=== PATIENT | male | born 2000 | race Caucasian/White ===

== ENCOUNTER 2024-01-21 22:34 | Emergency (ER) | payer OTHER, BC, SELFPAY ==
--- NOTE | ~2024-01-21 | CT_ITS ---
Noncontrast CT scan of the cervical spine Technique: Multiple contiguous axial [address] images of the cervical spine were obtained and rec onstructed in 2D sagittal and coronal planes on the acquisition scanner. Dose reduction technique was used on this scan by utilizing automated exposure control, adjustment of the mA and/or kV according to patient size. The dose-length product (DLP) was 526.27 mGy-cm. Clinical History: Pain Findings: No fractures or dislocations. Unremarkable visualized bony structures. The intervertebral disc spaces are preserved. No prevertebral soft tissue swelling. Impression: No fracture or subluxation of the cervical spine. Reviewed, dictated and finalized at location . Impression: No fracture or subluxation of the cervical spine.
--- NOTE | ~2024-01-21 | XR_ITS ---
AP view of the pelvis and AP and lateral views of the left hip Clinical history: Pain Findings: No acute fracture or dislocation is seen. Osseous alignment is anatomic. Bilateral hip and SI joint spaces are preserved. Soft tissues are unremarkable. Impression: No significant abnormality is seen. Reviewed, dictated and finalized at [facility]. Impression: No significant abnormality is seen.
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
[2024-01-21 22:34] VITALS: BP 122/64; PULSE 77; RESP 18; TEMP 36.7; O2SAT 97
[2024-01-22 00:15] VITALS: BP 132/78; PULSE 72; RESP 16; TEMP 36.4; O2SAT 98
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
[2024-01-22] MEDS: ACETAMINOPHEN 500 MG TABLET 1000 MG PO (00:50)
[2024-01-22 01:48] VITALS: BP 126/93; PULSE 60; RESP 16; O2SAT 97
== END 2024-01-22 02:56 | disposition home or self-care (01) ==
PROVIDERS: Emergency Provider Physician Assistant
DX: S09.90XA Unspecified injury of head, initial encounter (principal); S16.1XXA Strain of muscle, fascia and tendon at neck level, initial encounter; V49.40XA Driver injured in collision with unspecified motor vehicles in traffic accident, initial encounter
CPT/HCPCS: 70450; 72125; 72131; 73502; 99284; A9270

== ENCOUNTER 2024-10-29 14:18 | Emergency (ER) | payer BC, SELFPAY ==
[2024-10-29 14:26] VITALS: BP 134/83; PULSE 83; RESP 16; TEMP 36.2; O2SAT 98
--- NOTE | 2024-10-29 14:55 | ED_ITS ---
HPI - URI/Sore Throat General Chief Complaint: Upper Respiratory Infection Stated Complaint: Ears/Sinus Irritation Time Seen by Provider: 10/29/24 15:01 Source: patient, RN notes reviewed and old records reviewed Mode of arrival: ambulatory Limitations: no limitations History of Present Illness HPI Narrative: 23-year-old male presents to the [facility] with a 4-5 day history of left ear pain, sinus congestion. No treatment prior to arrival Related Data Allergies Allergy/AdvReac Type Severity Reaction Status Date / Time No Known Allergies Allergy Mild Verified 10/29/24 14:33 Review of Systems Review of Systems: All systems reviewed & are unremarkable except as noted in HPI and below Constitutional: Constitutional: Reports no additional constitutional complaints ENT: Reports as per HPI, Reports otalgia, Reports sinus pain and Reports sinus pressure Cardiovascular: Cardiovascular: Reports no additional cardiovascular complain ts, Denies chest pain and Denies dyspnea Respiratory: Respiratory: Reports no additional respiratory complaints, Denies chest congestion, Denies cough and Denies dyspnea Musculoskeletal: Musculoskeletal: Reports no additional musculoskeletal complaints Integumentary/Breasts: Skin/Breast: Reports system reviewed and no additional complaints, except as docu PMFSH Past Medical History Medical History No active medical problems Social History Social History Substance use: never Comments At the time of my signature, I reviewed and agree with the nursing past medical, surgical, social, and family history. There is no relevant family history pertinent to the patient complaint. Exam Const: General: cooperative, healthy appearing, comfortable, no acute distress, well developed, alert and well nourished Nutritional Appearance: well nourished Orientation/consciousness: patient oriented x3 Limitations: no limitations HENMT: Head: normal to inspection Ears: TM normal on the right, EAC's normal, mastoids normal, no periauricular adenopathy and TM abnormal bulging on the left and erythematous on the left Mouth: Yes Normal oral and palatal mucosa present, Yes lip normal, Yes tongue normal and Yes moist mucous membranes Throat: posterior oropharynx normal, uvula midline, postnasal drainage and no uvular edema Eyes: General: appearance normal, both eyes and all related structures Alignment and Position: alignment normal Neck: Neck: normal visual inspection, full ROM, no lymphadenopathy and no meningeal signs Chest: Chest palpation & inspection: normal inspection of the chest Resp: Effort & Inspection: normal respiratory effort and able to speak in complete sentences Auscultation: clear to auscultation bilaterally, no crackles, no rales, no rhonchi and no wheezes Cardio: Rate: regular rate Skin: General skin exam: normal color and no rashes or lesions noted Neuro: General: patient oriented x3, gait normal, moves all extremities and no meningeal signs Cognition (Neuro): normal cognition Speech: normal speech Gait exam (Neuro): Normal gait present Extrem: General: normal to inspection, full ROM, capillary refill normal and normal gait Psych: Appearance: grossly normal and well kempt Mental Status: mental status grossly normal Speech and movement: Normal speech and movement present and Clear speech present Affect: normal affect Attitude: cooperative Course Course Level of Care: Express Care Visit Vital Signs Vital signs: Vital Signs Temperature 97.1 F L 10/29/24 14:26 Pulse Rate 83 10/29/24 14:26 Respiratory Rate 16 10/29/24 14:26 Blood Pressure 134/83 10/29/24 14:26 Pulse Oximetry 98 10/29/24 14:26 Oxygen Delivery Room Air 10/29/24 14:26 Temperature 97.1 F L 10/29/24 14:26 Pulse Rate 83 10/29/24 14:26 Respiratory Rate 16 10/29/24 14:26 Blood Pressure 134/83 10/29/24 14:26 Pulse Oximetry 98 10/29/24 14:26 Oxygen Delivery Room Air 10/29/24 14:26 Reviewed MDM - URI/Sore Throat MDM Narrative Medical decision making narrative: Patient sitting comfortably in exam room. Nontoxic, vitals stable. Patient presents with 4-5 day history of URI symptoms. Left TM erythema, bulging. Exam consistent with left otitis media. Patient appropriate for outpatient treatment and follow-up Discharge instructions reviewed with patient, as well as provided in writing per nursing staff. The instructions also include specific and strict return/GO TO THE ER as well as f/u information. All questions have been answered, and the patient deny any further questions with discharge and discharge plan. Some parts of this dictation were generated by voice recognition software and may contain typographical and/or grammatical inaccuracies. Differential Diagnosis Differential diagnosis: Likely upper respiratory infection, otitis media, sinusitis, viral infection, pharyngitis and other (Otitis media, serous otitis, otitis externa) Critical Care Time Critical Care Time Critical Care Time: No Discharge Plan Discharge Clinical Impression: Acute left otitis media Sinusitis Qualifiers: Sinusitis location: unspecified location Chronicity: acute Recurrence: not specified as recurrent Qualified Code(s): J01.90 - Acute sinusitis, unspecified Patient Disposition: Home, Self-Care Condition: Stable Instructions: Antibiotic Form, Sinusitis (ED), Ear Infection (GEN) Additional Instructions: It is very important to treat your symptoms. Drink plenty of water, Gatorade, Pedialyte, ice pops or Jell-O. -Alternate Tylenol and Motrin per package directions for fever or pain. You can alternate every 4 hours -Antihistamine medication such as Zyrtec/Claritin/Farhana during the day can help improve symptoms. -doing daily nasal irrigations can help relieve pressure your sinuses. Things like a Neti pot -Use Flonase twice a day for 5 days then daily to help reduce the inflammation and dry up your sinuses. -You can also use Mucinex. Be sure to drink plenty of water with this medication at least 8 ounces with every dose and it is important to drink 8 to 10 glasses of water per day. Water is a natural decongestant -Eat and drink things that are easy to swallow, like tea or soup, or popsicles. -Oral rinses such as: Salt water gargles and/or may use topical anesthetic (eg. Chloraseptic spray) or lozenges to relieve dryness or throat pain). -Frequent hand washing or hand sightseeing guide is one of the best ways to prevent spread of infection. -Using a vaporizer or humidifier at night will also help thin secretions and help with coughing up phlegm. -Follow up with primary care provider in 7-10 days if condition is not improving - For new or worsening symptoms go directly to the nearest ER Patient Language: Chinese Prescriptions: New amoxicillin 875 mg tablet 875 mg PO Q12H Qty: 20 0RF fluticasone propionate [Flonase Allergy Relief] 50 mcg/actuation spray,suspension 2 spray intranasal DAILY Qty: 16 0RF Rx Instructions: administer into each nostril Follow-up/Referrals: PHYSICIAN,DIRECTOR FINANCIAL ANALYSIS [Primary Care Provider] - Stand Alone Forms: Work/School Release IP Time of Disposition: 15:10
== END 2024-10-29 15:20 | disposition home or self-care (01) ==
PROVIDERS: Emergency Provider Nurse Practitioner
DX: H66.92 Otitis media, unspecified, left ear (principal); J01.90 Acute sinusitis, unspecified
CPT/HCPCS: 99213; G0463

== ENCOUNTER 2024-11-08 18:13 | Emergency (ER) | payer BC, SELFPAY ==
[2024-11-08 18:15] VITALS: BP 149/85; PULSE 107; RESP 18; TEMP 37; O2SAT 97
[2024-11-08 18:37] VITALS: O2SAT 98
--- NOTE | 2024-11-08 19:13 | ED.URI ---
HPI - URI/Sore Throat General Chief Complaint: Upper Respiratory Infection Stated Complaint: mold exposure? Time Seen by Provider: 11/08/24 18:25 Source: patient Mode of arrival: ambulatory Limitations: no limitations History of Present Illness HPI Narrative: This is a 23-year-old male, currently being treated with amoxicillin for an ear infection, who presents to the emergency department complaining of cough, sore throat, myalgias, congestion and runny nose for the past day. The patient is concerned that he has been exposed to black mold for the past 3 days. He has no other complaints at this time. Related Data Allergies Allergy/AdvReac Type Severity Reaction Status Date / Time No Known Allergies Allergy Mild Verified 11/08/24 18:19 Review of Systems Review of Systems: All systems reviewed & are unremarkable except as noted in HPI and below PMFSH Past Medical History Medical History (Updated 11/08/24 @ 19:18 by Chet Whitlock MD) No active medical problems Surgical History Surgical History (Updated 11/08/24 @ 19:15 by Chet Whitlock MD) No significant past surgical history Social History Social History Smoking status: Current every day smoker Alcohol intake: current Substance use: current Substance use type: marijuana Exam Narrative: GENERAL: Well-developed, well-nourished, and in no acute distress. HEAD: Normocephalic, atraumatic. EYES: PERRLA and EOMI. ENT: Nares clear, no rhinorrhea or epistaxis. Mucous membranes moist. Oropharynx mild bilateral tonsillar erythema without hypertrophy exudate or other lesions. CHEST: Clear to auscultation. No respiratory distress. No wheezes rales or rhonchi HEART: Regular rate and rhythm. No murmur heard. Normal peripheral pulses. EXTREMITIES: Normal range of motion. No edema. SKIN: Warm, dry, no rash. NEURO: Alert and oriented x3. No focal deficit. Moving all 4 limbs spontaneously PSYCH: Normal mood and affect. Course Course Emergency Course: 19:17 - The patient tested positive for influenza A. I suspect this is the cause of his symptoms. Mold exposure is likely exacerbating this. Will discharge with decongestants and recommendations for rest and primary care follow-up. I discussed the findings and recommendations with The patient. Discussed return and emergency precautions including signs/symptoms of ACS and respiratory distress. The patient voiced understanding and agreement with the plan. All questions answered to his satisfaction. Vital Signs Vital signs: Vital Signs Temperature 98.6 F 11/08/24 18:15 Pulse Rate 107 H 11/08/24 18:15 Respiratory Rate 18 11/08/24 18:15 Blood Pressure 149/85 H 11/08/24 18:15 Pulse Oximetry 97 11/08/24 18:15 Oxygen Delivery Room Air 11/08/24 18:15 Temperature 98.6 F 11/08/24 18:15 Pulse Rate 107 H 11/08/24 18:15 Respiratory Rate 18 11/08/24 18:15 Blood Pressure 149/85 H 11/08/24 18:15 Pulse Oximetry 98 11/08/24 18:37 Oxygen Delivery Room Air 11/08/24 18:37 MDM - URI/Sore Throat MDM Narrative Medical decision making narrative: Plan: Labs, symptomatic management, reassess Differential Diagnosis Differential diagnosis: Likely upper respiratory infection, sinusitis, viral infection, influenza and other (COVID, RSV, other) Lab Data Labs: Lab Results 11/08/24 Range/Units 18:34 Influenza A (RT-PCR) Positive A (Negative) Influenza B (RT-PCR) Negative (Negative) RSV (RT-PCR) Negative (Negative) SARS-CoV-2 RNA (RT-PCR) Negative (Negative) Discharge Plan Discharge Clinical Impression: Influenza A, Acute coryza Patient Disposition: Home, Self-Care Condition: Stable Instructions: Antibiotic Form, Influenza (ED) Additional Instructions: You were seen in the emergency department. You tested positive for influenza A. I recommend decongestants, plenty of fluids, rest and follow-up with a primary care doctor. If you develop persistent vomiting, difficulty breathing, loss of conscious, or if you have other emergent concerns for life, limb, or eyesight, return to the emergency department. Patient Language: Greenlandic Prescriptions: New dextromethorphan-guaifenesin 20-400 mg/5 mL liquid 5 ml PO Q6H PRN (Reason: cough) Qty: 473 0RF pseudoephedrine HCl 60 mg tablet 60 mg PO Q8H PRN (Reason: nasal congestion) Qty: 15 0RF Rx Instructions: DNExceed 4 doses/24h No Action amoxicillin 875 mg tablet 875 mg PO Q12H Qty: 20 0RF fluticasone propionate [Flonase Allergy Relief] 50 mcg/actuation spray,suspension 2 spray intranasal DAILY Qty: 16 0RF Rx Instructions: administer into each nostril Follow-up/Referrals: UNKNOWN,DOCTOR [Primary Care Provider] - 2 Weeks Time of Disposition: 19:18
[2024-11-08 19:15] LABS: Influenza A QL RT-PCR Positive (Negative); Influenza B QL RT-PCR Negative (Negative); RSV RNA, RT-PCR Negative (Negative); SARS-CoV-2 RNA PCR Negative (Negative)
--- OUTSIDE RECORDS SUMMARY | 2024-11-12 10:51 | XMS_ITS | Clinical Summary ---
Author Organization [facility] Address [address] [address] [place] [address] Phone Care Team Providers Care Weights And Measures Inspector Name Role Phone Unavailable Primary Care Provider Unavailabl e Allergies No known active allergies Medications No known medications Social History Tobacco Use Types Packs/Day Years Used Date Smoking Tobacco: Former Cigarettes Q uit: 06/20/2020 Smokeless Tobacco: Never Tobacco Cessation:Counseling Given: Not Answered Alcohol Use Standard Drinks/Week Comments Yes 0 (1 standard drink = 0.6 oz pur e alcohol) rarely Feeling Safe Answer Date Recorded Are you in a relationship wi th someone who hurts you emotionally and/or physically? No 06/20/2023 Sex and Gender Information Value Date Recorded Sex Assigned at Not on file Legal Sex Male 8:24 PM CDT Gender Identity Not on file Sexual Orientation Not on file Last Filed Vital Signs Vital Sign Reading Time Taken Comments Blood Pressure 122/69 06/20/2023 8:37 PM CDT Pulse 87 06/20/2023 8:37 PM CDT Temperature 36.7 ??C (98.1 ??F) 06/20/2023 8:37 PM CD T Respiratory Rate 16 06/20/2023 8:37 PM CDT Oxygen Saturation 96% 06/20/2023 8:37 PM CDT Inhaled Oxygen Concentration - - Weight 108 kg (238 lb) 06/20/2023 8:37 PM CDT Height 175.3 cm (5' 9 ) 06/20/2023 8:37 PM CDT Body Mass Index 35.15 06/20/2023 8:37 PM CDT Plan of Treatment Health Maintenance Due Date Last Done Comments HPV VACCINES (1 - Male 3-dos e series) 12/23/2014 DTAP/TDAP/TD VACCINES (1 - Tdap) 12/23/2018 HEPATITIS B VACCINES (1 of 3 - 19+ 3-dose series) 12/23/2018 INFLUENZA VACCINE (#1) 2024 PNEUMOCOCCAL VACCINE 0-64 YEARS Aged Out No longer eligible based on patient's age to complete this topic [place] [address] [place] FABIANA ALICIA [facility]
--- OUTSIDE RECORDS SUMMARY | 2024-11-12 10:51 | XMS_ITS | CONTINUITY OF CARE DOCUMENT ---
Author Name luisliliatiffanie Address Unknown Organization [facility] Address [address] [place] [address] Phone [phone] Care Team Providers Care Teacher Adult Education Name Role Phone Charlie HAN, Gerald Unavailable [phone] CHECO HAN, ARIANNA Schwarz Unavailable INSURANCE PROVIDERS Payer name Policy type / Coverage type [employer] party ID [employer] MEDICAID (2) Medicaid [id number]
== END 2024-11-08 19:45 | disposition home or self-care (01) ==
PROVIDERS: Emergency Provider Preventive Medicine Aerospace Medicine
DX: J10.1 Influenza due to other identified influenza virus with other respiratory manifestations (principal); Z20.822 Contact with and (suspected) exposure to COVID-19; F17.200 Nicotine dependence, unspecified, uncomplicated
CPT/HCPCS: 87637; 99283

== ENCOUNTER 2024-12-09 14:29 | Emergency (ER) | payer BC, SELFPAY ==
--- NOTE | ~2024-12-09 | XR_ITS ---
EXAMINATION: XR chest 2V DATE: 12/09/2024 15:10 INDICATION: Cough and congestion. TECHNIQUE: Frontal and lateral views of the chest were obtained. COMPARISON: None. FINDINGS: There are airspace opacities in left lower lung zone. No pleural effusion or pneumothorax. The heart size is normal. IMPRESSION: 1. Airspace opacities in left lower lung zone, consistent with atelectasis versus pneumonia. Reviewed, dictated and finalized at location A. ANALYST IMPRESSION: 1. Airspace opacities in left lower lung zone, consistent with atelectasis vers us pneumonia.
--- OUTSIDE RECORDS SUMMARY | 2024-12-09 14:33 | XMS_ITS | Patient Health Record ---
Author Organization [facility] Address [address] [place] [address] Care Team Providers Care Cutter Plastics Rolls Name Role Phone Claritza Bello Primary Care Provider Reason For Referral No Information Medications Medication SIG (Take, Route, Fr equency, Duration) Notes Start Date End Date Status Focalin XR 10 MG 1 capsule in the mor dilia Orally Once a day for 30 days 07/19/2017 Active Adderall 10 MG 1 tablet in the morn ing Orally Once a day for 30 days 02/12/2018 Active Vyvanse 60 MG 1 capsule in the mor dilia Orally Once a day for 30 days 02/12/2018 Active Focalin XR 15 MG 1 capsule in the mor dilia Orally Once a day for 30 days 07/19/2017 Active Adderall XR 30 MG 1 capsule in the mor dilia Orally Once a day for 30 days 08/08/2016 Active Social History Tobacco Use: Social History Observation Description Date Details (start date - stop date) Never Smoker NA - NA Dont use, Tobacco Use/Smoking Question Answer Notes Are you a nonsmoker Section Notes: Still smoking marijuana and discussed cessation Still smoking marijuana and discussed cessation Still smoking marijuana and discussed cessation Still smoking marijuana and discussed cessation Still smoking marijuana and discussed cessation Still smoking marijuana and discussed cessation Still smoking marijuana and discussed cessation Still smoking marijuana, wh enever I can get it, last couple weeks I have had a lot, so I was smoking everyday Still smoking marijuana and discussed cessation Still smoking marijuana and discussed cessation Still smoking marijuana and discussed cessation Still smoking marijuana, wh enever I can get it, last couple weeks I have had a lot, so I was smoking everyday Still smoking marijuana and discussed cessation Still smoking marijuana and discussed cessation Still smoking marijuana and discussed cessation Problems Problem Type SNOMED Code ICD Code Onset Dates Problem Status W/U Status Risk Notes Problem 30763147 Oppositional defiant behavior (F91.3) Active confirmed Problem 60214130 Attention defici t hyperactivity disorder (ADHD), combined type (F90.2) Active confirmed Problem 469096831 Conduct disorder (F91.9) Active confirmed Plan Of Treatment No Information Insurance Providers Payer Name Payer Address Payer Phone Subscriber Number Group Number Insured Name Patient Relationship to Insured Coverage Start Date Coverage End Date [facility] Att Claims Department [address] [place] [address] [id number] Harshad Urrutia Self - patient is the insured 6 [phone]
[2024-12-09 14:36] VITALS: BP 143/76; PULSE 95; RESP 16; TEMP 36.4; O2SAT 97
--- NOTE | 2024-12-09 14:53 | ED.URI ---
HPI - URI/Sore Throat General Chief Complaint: Upper Respiratory Infection Stated Complaint: congestion Time Seen by Provider: 12/09/24 14:53 Source: patient Mode of arrival: ambulatory Limitations: no limitations History of Present Illness HPI Narrative: 23 YEARS OLD WHITE MALE CAME TO THE ED WITH HIS GIRLFRIEND BY PRIVATE CAR COMPLAINING OF COUGHING UP PHLEGM SOMETIME HAVE STREAKS OF BLOOD IN IT OVER THE LAST 3-4 DAYS. TESTED POSITIVE FOR INFLUENZA A 2 WEEKS AGO. PATIENT DENIES ANY FEVER OR CHILLS OR SHORTNESS OF BREATH OR CHEST PAIN. Related Data Allergies Allergy/AdvReac Type Severity Reaction Status Date / Time No Known Allergies Allergy Mild Verified 11/08/24 18:19 Review of Systems Review of Systems: All systems reviewed & are unremarkable except as noted in HPI and below PMFSH Past Medical History Medical History No active medical problems Surgical History Surgical History No significant past surgical history Social History Social History Smoking status: Current every day smoker Alcohol intake: current Substance use: current Substance use type: marijuana Exam Narrative: GENERAL APPEARANCE: WELL-DEVELOPED, WELL-NOURISHED SKIN: NORMAL COLOR HEAD: NORMOCEPHALIC, NONTRAUMATIC EYES: CLEAR CONJUNCTIVA ENT: OROPHARYNX NORMAL, EARS NORMAL, NOSE NORMAL NECK: SUPPLE, NONTENDER CHEST AND RESPIRATORY: AIRWAY PATENT, NO RESPIRATORY DISTRESS, NO ACCESSORY MUSCLE USE HEART: REGULAR RATE/RHYTHM ABDOMEN: SOFT, NONTENDER, NO ORGANOMEGALY, QUIET BOWEL SOUNDS VASCULAR: NORMAL PERIPHERAL PULSES, NORMAL CAPILLARY REFILL. 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 IS NORMAL TESTED, NO GROSS MOTOR DEFICIT Course Vital Signs Vital signs: Vital Signs Temperature 36.4 C 12/09/24 14:36 Pulse Rate 95 12/09/24 14:36 Respiratory Rate 16 12/09/24 14:36 Blood Pressure 143/76 H 12/09/24 14:36 Pulse Oximetry 97 12/09/24 14:36 Oxygen Delivery Room Air 12/09/24 14:36 Temperature 36.4 C 12/09/24 14:36 Pulse Rate 95 12/09/24 14:36 Respiratory Rate 16 12/09/24 14:36 Blood Pressure 143/76 H 12/09/24 14:36 Pulse Oximetry 97 12/09/24 14:36 Oxygen Delivery Room Air 12/09/24 14:36 MDM - URI/Sore Throat MDM Narrative Medical decision making narrative: DIFFERENTIAL DIAGNOSIS INCLUDE UPPER RESPIRATORY VIRAL INFECTION, PNEUMONIA CHEST X-RAY SHOWED FINDING CONSISTENT WITH PNEUMONIA VERSUS ATELECTASIS DISCHARGED ON AMOXICILLIN AND ALBUTEROL Differential Diagnosis Differential diagnosis: Likely other ( ABOVE) Lab Data Attestation: I reviewed the patient's lab results. Labs: Lab Results 12/09/24 Range/Units 14:54 Influenza A (RT-PCR) Negative (Negative) Influenza B (RT-PCR) Negative (Negative) RSV (RT-PCR) Negative (Negative) SARS-CoV-2 RNA (RT-PCR) Negative (Negative) Imaging Data Radiologist's impression: Impressions Chest X-Ray 12/09/24 15:13 IMPRESSION: 1. Airspace opacities in left lower lung zone, consistent with atelectasis versus pneumonia. Critical Care Time Critical Care Time Critical Care Time: No Discharge Plan Discharge Clinical Impression: Pneumonia Patient Disposition: Home, Self-Care Condition: Stable Instructions: Antibiotic Form, Community Acquired Pneumonia (ED) Additional Instructions: RETURN IF SYMPTOMS ARE WORSENING , CALL YOUR FAMILY PHYSICIAN FOR APPOINTMENT, TAKE TYLENOL NEEDED FOR ACHES AND PAIN, CONTINUE HOME MEDICATIONS. Patient Language: Georgian Prescriptions: New amoxicillin 500 mg capsule 1,000 mg PO Q8H Qty: 21 0RF albuterol sulfate [Ventolin HFA] 90 mcg/actuation HFA aerosol inhaler 2 puff inhalation QID PRN (Reason: shortness of breath or wheezing) Qty: 8.5 0RF No Action amoxicillin 875 mg tablet 875 mg PO Q12H Qty: 20 0RF fluticasone propionate [Flonase Allergy Relief] 50 mcg/actuation spray,suspension 2 spray intranasal DAILY Qty: 16 0RF Rx Instructions: administer into each nostril dextromethorphan-guaifenesin 20-400 mg/5 mL liquid 5 ml PO Q6H PRN (Reason: cough) Qty: 473 0RF pseudoephedrine HCl 60 mg tablet 60 mg PO Q8H PRN (Reason: nasal congestion) Qty: 15 0RF Rx Instructions: DNExceed 4 doses/24h Follow-up/Referrals: UNKNOWN,DOCTOR [Non-Staff] - Stand Alone Forms: Work/School Release IP
--- OUTSIDE RECORDS SUMMARY | 2024-12-09 15:07 | XMS_ITS | Clinical Summary ---
Author Organization [facility] Address [address] [address] [place] [address] Phone Care Team Providers Care Neurosurgery Research Director Name Role Phone Unavailable Primary Care Provider [...] 87 06/20/2023 8:37 PM CDT Temperature 36.7 C (98.1 F) 06/20/2023 8:37 PM CDT Respiratory Rate 16 06/20/2023 8:37 PM CDT [...] patient's age to complete this topic Insurance [facility] [place]
[2024-12-09 15:39] LABS: Influenza A QL RT-PCR Negative (Negative); Influenza B QL RT-PCR Negative (Negative); RSV RNA, RT-PCR Negative (Negative); SARS-CoV-2 RNA PCR Negative (Negative)
== END 2024-12-09 16:15 | disposition home or self-care (01) ==
PROVIDERS: Emergency Medicine; Emergency Provider Emergency Medicine
DX: J18.9 Pneumonia, unspecified organism (principal); Z20.822 Contact with and (suspected) exposure to COVID-19; F17.200 Nicotine dependence, unspecified, uncomplicated
CPT/HCPCS: 71046; 87637; 99283